=== PATIENT | male | born 1950 | race African-American/Black ===

== ENCOUNTER 2016-05-30 09:54 | Inpatient (IN) | payer BC, MEDICARE ==
[~2016-05-30] VITALS: Ht 182.9 cm; Wt 144.2 kg
[2016-05-30 10:12] VITALS: BP 138/88
[2016-05-30 11:23] LABS: BASOPHILS % (AUTO) 0.7 % (0.0-2.0); EOSINOPHILS % (AUTO) 1.2 % (0.0-3.0); LYMPHOCYTES % (AUTO) 14.6 % (20.0-45.0); MEAN CORPUSCULAR HEMOGLOBIN 28.7 PG (27.0-31.0); MEAN CORPUSCULAR HGB CONC 32.2 G/DL (32.0-36.0); MEAN CORPUSCULAR VOLUME 89 FL (80-99); MEAN PLATELET VOLUME 5.3 FL (6.5-10.1); MONOCYTES % (AUTO) 9.3 % (1.0-10.0); NEUTROPHILS % (AUTO) 74.2 % (45.0-75.0); PLATELET COUNT 217 K/UL (150-450); RED BLOOD COUNT 2.86 M/UL (4.70-6.10); RED CELL DISTRIBUTION WIDTH 14.4 % (11.6-14.8); WHITE BLOOD COUNT 9.6 K/UL (4.8-10.8)
[2016-05-30 11:43] LABS: ALANINE AMINOTRANSFERASE 17 U/L (3-41); ALBUMIN/GLOBULIN RATIO 1.5 (1.0-2.7); ANION GAP 9 (5-15); ASPARTATE AMINO TRANSFERASE 16 U/L (5-40); CARBON DIOXIDE 25 mEQ/L (20-30); CHLORIDE 101 mEQ/L (98-107); CREATININE 0.7 mg/dL (0.7-1.2); GLOMERULAR FILTRATION RATE > 60 mL/min (>60); HEMOLYSIS 2; LIPASE 30 U/L (< 60); POTASSIUM 4.5 mEQ/L (3.4-4.9); SODIUM 135 mEQ/L (135-145); TOTAL PROTEIN 6.4 g/dL (6.6-8.7)
[2016-05-30] MEDS ORDERED: NKM (12:35)
[2016-05-30 13:24] VITALS: BP 122/54
[2016-05-30 15:30] VITALS: BP 130/62
[2016-05-30] MEDS: Pantoprazole Inj IVP SCH (19:02)
[2016-05-30 19:07] LABS: RETICULOCYTE COUNT 1.8 % (0.0-2.0)
[2016-05-30 19:18] LABS: ANISOCYTOSIS 1+; BAND NEUTROPHILS % (MANUAL) 0 % (0-8); BASOPHILS % (MANUAL) 0 % (0-2); EOSINOPHILS % (MANUAL) 2 % (0-3); LYMPHOCYTES % (MANUAL) 21 % (20-45); MICROCYTES 1+; NEUTROPHILS % (MANUAL) 62 % (45-75); NUCLEATED RED BLOOD CELLS 3 /100 WBC; PLATELET ESTIMATE ADEQUATE; PLATELET MORPHOLOGY NORMAL; POLYCHROMASIA 1+; TOTAL CELLS COUNTED 100
[2016-05-30 19:19] LABS: PATH BLOOD SMEAR/OMC SENT TO PATHOLOGIST
[2016-05-30 21:37] LABS: CRP QUANT 1.7 mg/dL (< 0.5)
--- NOTE | 2016-05-30 23:50 | General Progress Note ---
Assessment/Plan Assessment/Plan Assessment - Melena - Anemia - Obesity Recommendations - clears - NPO after MN - EGD in am - PPI Subjective Allergies: Coded Allergies: No Known Allergies (Unverified , 05/30/16) Objective Last 24 Hour Vital Signs Date Time Temp Pulse Resp B/P Pulse Ox O2 Delivery O2 Flow Rate FiO2 05/30/16 16:27 98.6 81 19 126/60 99 Room Air 05/30/16 15:30 98.6 88 20 130/62 100 Room Air 05/30/16 13:24 98.8 83 22 122/54 100 Room Air 05/30/16 10:12 98.8 18 138/88 100 Room Air 05/30/16 09:58 98.8 89 18 138/88 100 Room Air Laboratory Tests 05/30/16 11:12: White Blood Count 9.6, Red Blood Count 2.86L, Hemoglobin 8.2L, Hematocrit 25.5L , Mean Corpuscular Volume 89, Mean Corpuscular Hemoglobin 28.7, Mean Corpuscular Hemoglobin Concent 32.2, Red Cell Distribution Width 14.4, Platelet Count 217, Mean Platelet Volume 5.3L, Neutrophils (%) (Auto) 74.2, Lymphocytes ( %) (Auto) 14.6L, Monocytes (%) (Auto) 9.3, Eosinophils (%) (Auto) 1.2, Basophils (%) (Auto) 0.7, Differential Total Cells Counted 100, Neutrophils % ( Manual) 62, Lymphocytes % (Manual) 21, Monocytes % (Manual) 15H, Eosinophils % ( Manual) 2, Basophils % (Manual) 0, Band Neutrophils 0, Nucleated Red Blood Cells 3, Platelet Estimate Adequate, Platelet Morphology Normal, Polychromasia 1 +, Anisocytosis 1+, Microcytosis 1+, Sodium Level 135, Potassium Level 4.5, Chloride Level 101, Carbon Dioxide Level 25, Anion Gap 9, Blood Urea Nitrogen 15 , Creatinine 0.7, Estimat Glomerular Filtration Rate > 60, Glucose Level 104, Calcium Level 12.0H, Total Bilirubin 0.3, Aspartate Amino Transf (AST/SGOT) 16, Alanine Aminotransferase (ALT/SGPT) 17, Alkaline Phosphatase 98, Total Protein 6.4L, Albumin 3.9, Globulin 2.5, Albumin/Globulin Ratio 1.5, Lipase 30 05/30/16 11:13: Erythrocyte Sedimentation Rate 48H, Reticulocyte Count 1.8 05/30/16 20:40: Iron Level 41L, Total Iron Binding Capacity 294, Percent Iron Saturation 14L, Unsaturated Iron Binding 253, Ferritin 149, C-Reactive Protein, Quantitative 1.7H, Vitamin B12 Level 379, Folate [Pending] Height (Feet): 6 Height (Inches): 0.00 Weight (Pounds): 318 SHANAE CRUZ May 30, 2016 23:50
[2016-05-31] VITALS (9 sets, daily range): BP systolic 92–123; BP diastolic 47–70
--- NOTE | 2016-05-31 04:37 | Consultation ---
DATE OF CONSULTATION: 05/30/2016 GASTROENTEROLOGY CONSULTATION CONSULTING PHYSICIAN: Rosa Siddiqui M.D. REFERRING PHYSICIAN: Francis Saucedo M.D. CHIEF COMPLAINT: I was asked to see this patient for evaluation of gastrointestinal bleeding. HISTORY OF PRESENT ILLNESS: The patient is a pleasant, obese, 66-year-old man without any significant past medical history who was in his usual state of health until past few days when he noticed black stools. He came to the emergency room where he was found to have a low hematocrit and thus he was admitted for evaluation. The patient denies any abdominal pain, nausea, or vomiting. He did take a small dose of aspirin last week or two. He had no history of anemia and has not had prior endoscopy or colonoscopy in the past. He is generally healthy and has no physicians. PAST MEDICAL HISTORY: Not available. MEDICATIONS: None. FAMILY HISTORY: Noncontributory. SOCIAL HISTORY: The patient is . He has no children. He does not smoke or drink alcohol. REVIEW OF SYSTEMS: Negative. PHYSICAL EXAMINATION: GENERAL: The patient is a pleasant, obese, man, seen in his room. HEENT: Normocephalic and atraumatic. Sclerae anicteric. Oropharynx is clear. NECK: Supple. CHEST: Clear to auscultation. CARDIOVASCULAR: Revealed regular rate. ABDOMEN: Soft and nontender. EXTREMITIES: No edema. LABORATORY DATA: Noted. ASSESSMENT: This patient has a first-time episode of melena with drop in hematocrit. He should have an endoscopy tomorrow to evaluate the risks, cause for recurrent bleeding, and the nature of the bleeding lesion. If he is positive, probably he will likely need to be treated. RECOMMENDATIONS: 1. Keep the patient NPO after midnight. 2. Clear liquid diet, continue. 3. Intravenous fluids. 4. Proton pump inhibitor. 5. Endoscopy tomorrow. Thank you for asking me to participate in the care of this patient. Rosa Siddiqui M.D. DR: MAKENZIE JOB#: [id number] CC:
--- NOTE | 2016-05-31 06:47 | Emergency Room Report ---
History of Present Illness General Chief Complaint: Gastrointestinal Bleed Source: Patient Present Illness HPI Patient presents with complaints of dark stool General weakness Patient's concern about possible bleeding Denies any headache or visual changes as any chest pain or shortness of breath patient has not had a colonoscopy previously Denies any abdominal pain denies any fevers or chills Patient states that his stool has been changing color for the last several days denies any change in medication Patient had some lightheadedness weakness Allergies: Coded Allergies: No Known Allergies (Unverified , 05/30/16) Patient History Past Medical History: see triage record Pertinent Family History: none Reviewed Nursing Documentation: PMH: Agreed, PSxH: Agreed Nursing Documentation-PMH Hx Cardiac Problems: No Hx Cancer: No Hx Neurological Problems: No Review of Systems All Other Systems: negative except mentioned in HPI Physical Exam Vital Signs Date Time Temp Pulse Resp B/P Pulse Ox O2 Delivery O2 Flow Rate FiO2 05/30/16 09:58 98.8 89 18 138/88 100 Room Air Sp02 EP Interpretation: reviewed, normal General Appearance: well appearing, no apparent distress Head: normocephalic, atraumatic Eyes: bilateral eye EOMI, bilateral eye PERRL ENT: hearing grossly normal, normal pharynx, TMs + canals normal, uvula midline Neck: full range of motion, supple, no meningismus, no bony tend Respiratory: lungs clear, normal breath sounds, no rhonchi, no respiratory distress, no retraction, no accessory muscle use Cardiovascular #1: normal peripheral pulses, regular rate, rhythm, no edema, no gallop, no JVD, no murmur Gastrointestinal: normal bowel sounds, non tender, soft, no mass, no organomegaly, non-distended, no guarding, no hernia, no pulsatile mass, no rebound Genitourinary: no CVA tenderness Musculoskeletal: normal inspection Neurologic: oriented x3, responsive, train engineer III-XII nml as tested, motor strength/ tone normal, sensory intact Psychiatric: mood/affect normal Skin: normal color, no rash, warm/dry, palpation normal Lymphatic: normal inspection, no adenopathy Medical Decision Making Diagnostic Impression: Primary Impression: GI bleed Additional Impression: Symptomatic anemia ER Course Given the patient's presentation and complaint Patient is considered complex requiring blood work Patient was not able to provide us a stool sample At this time attempts of obtaining Hemoccult was also unsuccessful However given the patient's symptomatic findings hemoglobin of 8 patient was admitted for further inpatient care Labs Test 05/30/16 11:12 05/30/16 11:13 05/30/16 20:40 White Blood Count 9.6 K/UL (4.8-10.8) Red Blood Count 2.86 M/UL (4.70-6.10) Hemoglobin 8.2 G/DL (14.2-18.0) Hematocrit 25.5 % (42.0-52.0) Mean Corpuscular Volume 89 FL (80-99) Mean Corpuscular Hemoglobin 28.7 PG (27.0-31.0) Mean Corpuscular Hemoglobin Concent 32.2 G/DL (32.0-36.0) Red Cell Distribution Width 14.4 % (11.6-14.8) Platelet Count 217 K/UL (150-450) Mean Platelet Volume 5.3 FL (6.5-10.1) Neutrophils (%) (Auto) 74.2 % (45.0-75.0) Lymphocytes (%) (Auto) 14.6 % (20.0-45.0) Monocytes (%) (Auto) 9.3 % (1.0-10.0) Eosinophils (%) (Auto) 1.2 % (0.0-3.0) Basophils (%) (Auto) 0.7 % (0.0-2.0) Differential Total Cells Counted 100 Neutrophils % (Manual) 62 % (45-75) Lymphocytes % (Manual) 21 % (20-45) Monocytes % (Manual) 15 % (1-10) Eosinophils % (Manual) 2 % (0-3) Basophils % (Manual) 0 % (0-2) Band Neutrophils 0 % (0-8) Nucleated Red Blood Cells 3 /100 WBC Platelet Estimate Adequate Platelet Morphology Normal Polychromasia 1+ Anisocytosis 1+ Microcytosis 1+ Sodium Level 135 mEQ/L (135-145) Potassium Level 4.5 mEQ/L (3.4-4.9) Chloride Level 101 mEQ/L (98-107) Carbon Dioxide Level 25 mEQ/L (20-30) Anion Gap 9 (5-15) Blood Urea Nitrogen 15 mg/dL (7-23) Creatinine 0.7 mg/dL (0.7-1.2) Estimat Glomerular Filtration Rate > 60 mL/min (>60) Glucose Level 104 mg/dL (74-106) Calcium Level 12.0 mg/dL (8.6-10.2) Total Bilirubin 0.3 mg/dL (0.0-1.2) Aspartate Amino Transf (AST/SGOT) 16 U/L (5-40) Alanine Aminotransferase (ALT/SGPT) 17 U/L (3-41) Alkaline Phosphatase 98 U/L (40-129) Total Protein 6.4 g/dL (6.6-8.7) Albumin 3.9 g/dL (3.5-5.2) Globulin 2.5 g/dL Albumin/Globulin Ratio 1.5 (1.0-2.7) Lipase 30 U/L (< 60) Erythrocyte Sedimentation Rate 48 MM/HR (0-20) Reticulocyte Count 1.8 % (0.0-2.0) Iron Level 41 ug/dL (59-158) Total Iron Binding Capacity 294 ug/dL (250-400) Percent Iron Saturation 14 % (15-50) Unsaturated Iron Binding 253 ug/dL (112-346) Ferritin 149 ng/mL (10-230) C-Reactive Protein, Quantitative 1.7 mg/dL (< 0.5) Vitamin B12 Level 379 pg/mL (211-946) Last Vital Signs Date Time Temp Pulse Resp B/P Pulse Ox O2 Delivery O2 Flow Rate FiO2 05/31/16 00:00 97.9 71 18 105/58 91 Room Air Status: improved Disposition: ADMITTED INPATIENT Condition: Serious Referrals: NOT CHOSEN IPA/,REFERRING (PCP) CARLENE KOO D.O. May 31, 2016 06:47
[2016-05-31] MEDS: Pantoprazole Inj IVP SCH ×2 (08:46→17:32)
--- NOTE | 2016-05-31 09:39 | Pre-Procedure Note/Attestation ---
Pre-Procedure Note/Attestation Complete Prior to Procedure Planned Procedure: not applicable Procedure Narrative: egd Indications for Procedure Pre-Operative Diagnosis: anemia Attestation I attest that I discussed the nature of the procedure; its benefits; risks and complications; and alternatives (and the risks and benefits of such alternatives ), prior to the procedure, with the patient (or the patient's legal digital media representative). I attest that, if there was a reasonable possibility of needing a blood transfusion, the patient (or the patient's legal digital media representative) was given the [facility] standardized written summary, pursuant to the David Casey Blood Safety Act ([place] Health and Safety Code # 1645, as amended). I attest that I re-evaluated the patient just prior to the surgery and that there has been no change in the patient's H&P, except as documented below: YAQUELIN JOHANSEN May 31, 2016 09:39
--- NOTE | 2016-05-31 09:43 | Short Stay Surgery H&P ---
History of Present Illness History of Present Illness Chief Complaint gib HPI Tony Madera is a 66 year old male who was admitted on May 30, 2016 at 12:54 for Gastrointestinal Bleeding Patient History Allergies: Coded Allergies: No Known Allergies (Unverified , 05/30/16) PAST MEDICAL HISTORY: (1) Kidney stone (2) Symptomatic anemia Past Surgeries: Social History: Medication History Scheduled No Known Medications* (NKM - No Known Medications*), 0 ., (Reported) Review of Systems Cardiovascular: Reports: no symptoms Respiratory: Reports: no symptoms Skeletal: Reports: no symptoms Gastrointestinal: Reports: no symptoms Genitourinary: Reports: no symptoms Neurologic: Reports: no symptoms Endocrine: Reports: no symptoms Hematologic: Reports: no symptoms Physical Exam Vital Signs Last Vital Signs Date Time Temp Pulse Resp B/P Pulse Ox O2 Delivery O2 Flow Rate FiO2 05/31/16 08:29 98.0 76 20 105/64 98 Room Air Labs Laboratory Tests Test 05/30/16 11:12 05/30/16 11:13 05/30/16 20:40 White Blood Count 9.6 K/UL (4.8-10.8) Red Blood Count 2.86 M/UL (4.70-6.10) L Hemoglobin 8.2 G/DL (14.2-18.0) L Hematocrit 25.5 % (42.0-52.0) L Mean Corpuscular Volume 89 FL (80-99) Mean Corpuscular Hemoglobin 28.7 PG (27.0-31.0) Mean Corpuscular Hemoglobin Concent 32.2 G/DL (32.0-36.0) Red Cell Distribution Width 14.4 % (11.6-14.8) Platelet Count 217 K/UL (150-450) Mean Platelet Volume 5.3 FL (6.5-10.1) L Neutrophils (%) (Auto) 74.2 % (45.0-75.0) Lymphocytes (%) (Auto) 14.6 % (20.0-45.0) L Monocytes (%) (Auto) 9.3 % (1.0-10.0) Eosinophils (%) (Auto) 1.2 % (0.0-3.0) Basophils (%) (Auto) 0.7 % (0.0-2.0) Differential Total Cells Counted 100 Neutrophils % (Manual) 62 % (45-75) Lymphocytes % (Manual) 21 % (20-45) Monocytes % (Manual) 15 % (1-10) H Eosinophils % (Manual) 2 % (0-3) Basophils % (Manual) 0 % (0-2) Band Neutrophils 0 % (0-8) Nucleated Red Blood Cells 3 /100 WBC Platelet Estimate Adequate Platelet Morphology Normal Polychromasia 1+ Anisocytosis 1+ Microcytosis 1+ Sodium Level 135 mEQ/L (135-145) Potassium Level 4.5 mEQ/L (3.4-4.9) Chloride Level 101 mEQ/L (98-107) Carbon Dioxide Level 25 mEQ/L (20-30) Anion Gap 9 (5-15) Blood Urea Nitrogen 15 mg/dL (7-23) Creatinine 0.7 mg/dL (0.7-1.2) Estimat Glomerular Filtration Rate > 60 mL/min (>60) Glucose Level 104 mg/dL (74-106) Calcium Level 12.0 mg/dL (8.6-10.2) H Total Bilirubin 0.3 mg/dL (0.0-1.2) Aspartate Amino Transf (AST/SGOT) 16 U/L (5-40) Alanine Aminotransferase (ALT/SGPT) 17 U/L (3-41) Alkaline Phosphatase 98 U/L (40-129) Total Protein 6.4 g/dL (6.6-8.7) L Albumin 3.9 g/dL (3.5-5.2) Globulin 2.5 g/dL Albumin/Globulin Ratio 1.5 (1.0-2.7) Lipase 30 U/L (< 60) Erythrocyte Sedimentation Rate 48 MM/HR (0-20) H Reticulocyte Count 1.8 % (0.0-2.0) Iron Level 41 ug/dL (59-158) L Total Iron Binding Capacity 294 ug/dL (250-400) Percent Iron Saturation 14 % (15-50) L Unsaturated Iron Binding 253 ug/dL (112-346) Ferritin 149 ng/mL (10-230) C-Reactive Protein, Quantitative 1.7 mg/dL (< 0.5) H Vitamin B12 Level 379 pg/mL (211-946) Folate Pending Skin: normal HENT: normal Heart: normal Lungs: normal Abdomen: normal Extremities: normal Plan Plan of Care egd Final Diagnosis: Attestation Are the patient's medical conditions optimized for surgery? Attestation Response: yes YAQUELIN JOHANSEN May 31, 2016 09:43
[2016-05-31] MEDS ORDERED: Lidocaine 1% MPF 10mg/ml 5ml ONE (10:00)
[2016-05-31] MEDS ORDERED: LR 1000ml ONE (10:00)
[2016-05-31] MEDS ORDERED: Propofol 10mg/ml 20ml IV ONE (10:00)
--- NOTE | 2016-05-31 10:01 | Anethesia Preoperative Eval ---
Anesthesia Pre-op PMH/ROS General Date of Evaluation: May 31, 2016 Time of Evaluation: 09:59 Anesthesiologist: jayson ASA Score: ASA 3 Mallampati Score Class I : Soft palate, uvula, fauces, pillars visible Class II: Soft palate, uvula, fauces visible Class III: Soft palate, base of uvula visible Class IV: Only hard plate visible Mallampati Classification: Class III Surgeon: mansi Diagnosis: gastritis Surgical Procedure: egd Anesthesia History: none Family History: no anesthesia problems Allergies: Coded Allergies: No Known Allergies (Unverified , 05/30/16) Medications: see eMAR Past Medical History Cardiovascular: Denies: CAD, HTN, NH, arrhythmia, other, valve dz Pulmonary: Denies: COPD, OPAL, asthma, other Gastrointestinal/Genitourinary: Reports: GERD Neurologic/Psychiatric: Denies: CVA, TIA, dementia, depression/anxiety, other Endocrine: Denies: DM, hypothyroidism, other, steroids HEENT: Denies: BLACKFEET (L), BLACKFEET (R), cataract (L), cataract (R), glaucoma, other Hematology/Immune: Reports: anemia Musculoskeletal/Integumentary: Denies: DDD, DJD, OA, RA, edema, other Other: obesity PSxH Narrative: denies Anesthesia Pre-op Phys. Exam Physician Exam Last Vital Signs Date Time Temp Pulse Resp B/P Pulse Ox O2 Delivery O2 Flow Rate FiO2 05/31/16 08:29 98.0 76 20 105/64 98 Room Air Constitutional: NAD Neurologic: CN 2-12 intact Cardiovascular: RRR Respiratory: CTA Gastrointestinal: S/NT/ND Airway Exam Mallampati Classification 3 Mallampati Score: Class III MO: full Neck: thick TMD: 1fb ROM: full Dentures: no lower, no upper Anesthesia Pre-op A/P Labs Hematology Test 05/30/16 11:12 05/30/16 11:13 White Blood Count 9.6 K/UL (4.8-10.8) Red Blood Count 2.86 M/UL (4.70-6.10) L Hemoglobin 8.2 G/DL (14.2-18.0) L Hematocrit 25.5 % (42.0-52.0) L Mean Corpuscular Volume 89 FL (80-99) Mean Corpuscular Hemoglobin 28.7 PG (27.0-31.0) Mean Corpuscular Hemoglobin Concent 32.2 G/DL (32.0-36.0) Red Cell Distribution Width 14.4 % (11.6-14.8) Platelet Count 217 K/UL (150-450) Mean Platelet Volume 5.3 FL (6.5-10.1) L Neutrophils (%) (Auto) 74.2 % (45.0-75.0) Lymphocytes (%) (Auto) 14.6 % (20.0-45.0) L Monocytes (%) (Auto) 9.3 % (1.0-10.0) Eosinophils (%) (Auto) 1.2 % (0.0-3.0) Basophils (%) (Auto) 0.7 % (0.0-2.0) Differential Total Cells Counted 100 Neutrophils % (Manual) 62 % (45-75) Lymphocytes % (Manual) 21 % (20-45) Monocytes % (Manual) 15 % (1-10) H Eosinophils % (Manual) 2 % (0-3) Basophils % (Manual) 0 % (0-2) Band Neutrophils 0 % (0-8) Nucleated Red Blood Cells 3 /100 WBC Platelet Estimate Adequate Platelet Morphology Normal Polychromasia 1+ Anisocytosis 1+ Microcytosis 1+ Erythrocyte Sedimentation Rate 48 MM/HR (0-20) H Reticulocyte Count 1.8 % (0.0-2.0) Chemistry Test 05/30/16 11:12 05/30/16 20:40 Sodium Level 135 mEQ/L (135-145) Potassium Level 4.5 mEQ/L (3.4-4.9) Chloride Level 101 mEQ/L (98-107) Carbon Dioxide Level 25 mEQ/L (20-30) Anion Gap 9 (5-15) Blood Urea Nitrogen 15 mg/dL (7-23) Creatinine 0.7 mg/dL (0.7-1.2) Estimat Glomerular Filtration Rate > 60 mL/min (>60) Glucose Level 104 mg/dL (74-106) Calcium Level 12.0 mg/dL (8.6-10.2) H Total Bilirubin 0.3 mg/dL (0.0-1.2) Aspartate Amino Transf (AST/SGOT) 16 U/L (5-40) Alanine Aminotransferase (ALT/SGPT) 17 U/L (3-41) Alkaline Phosphatase 98 U/L (40-129) Total Protein 6.4 g/dL (6.6-8.7) L Albumin 3.9 g/dL (3.5-5.2) Globulin 2.5 g/dL Albumin/Globulin Ratio 1.5 (1.0-2.7) Lipase 30 U/L (< 60) Iron Level 41 ug/dL (59-158) L Total Iron Binding Capacity 294 ug/dL (250-400) Percent Iron Saturation 14 % (15-50) L Unsaturated Iron Binding 253 ug/dL (112-346) Ferritin 149 ng/mL (10-230) C-Reactive Protein, Quantitative 1.7 mg/dL (< 0.5) H Vitamin B12 Level 379 pg/mL (211-946) Folate Pending Studies Pre-op Studies: EKG - sr Risk Assessment & Plan Plan: mac Status Change Before Surgery: No Pre-Antibiotics Drug: none IRIS HAHN CRNA May 31, 2016 10:01
--- NOTE | 2016-05-31 10:02 | Endoscopy Procedure Note ---
Endoscopy Procedure Note Indication for Procedure: anemia Procedures Performed: EGD Operative Findings/Diagnosis: gastritis Specimen: yes Pt Tolerated Procedure Well: Yes Estimated Blood Loss: none Anesthesiologist: marlo Anesthesia: MAC Implant(s) used?: No 50 yrs or older w/o bx or poly: Not Applicable 10yrs. F/U not recommended: Not Applicable YAQUELIN JOHANSEN May 31, 2016 10:02
--- NOTE | 2016-05-31 10:20 | Immediate Post-Op Evaluation ---
Immediate Post-Op Evalulation Immediate Post-Op Evalulation Procedure: egd Date of Evaluation: May 31, 2016 Time of Evaluation: 10:19 IV Fluids: 300 Blood Pressure Systolic: 117 Blood Pressure Diastolic: 65 Pulse Rate: 70 Respiratory Rate: 14 O2 Sat by Pulse Oximetry: 100 Nausea: No Vomiting: No Complications none Patient Status: awake, reacts, patent Hydration Status: adequate Drug: none IRIS HAHN CRNA May 31, 2016 10:20
--- NOTE | 2016-05-31 10:28 | 48 Hour Post Anesthesia Eval ---
Post Anesthesia Evaluation Procedure: egd Date of Evaluation: May 31, 2016 Time of Evaluation: 10:25 Blood Pressure Systolic: 105 0: 64 Pulse Rate: 75 O2 Sat by Pulse Oximetry: 99 Airway: patent Nausea: No Vomiting: No Hydration Status: adequate Cardiopulmonary Status: normal Mental Status/LOC: patient returned to baseline Post-Anesthesia Complications: none Follow-up care needed: N/A IRIS HAHN CRNA May 31, 2016 10:28
[2016-05-31] MEDS ORDERED: Nulytely 4L ORAL ONE (12:00)
--- NOTE | 2016-05-31 18:38 | Procedure Note ---
SURGEON: Pb Verma M.D. PROCEDURE: Upper endoscopy with biopsy. ANESTHESIA: DIESEL ENGINE PIPE FITTER, Xin Tarrillion. INSTRUMENT: Olympus adult flexible endoscope. INDICATION: Gastrointestinal bleeding. REASON FOR PROCEDURE: The procedure, risks, benefits, and possible consequences, including hemorrhage, aspiration, perforation and infection, and alternative treatments, were explained to the patient/legal guardian by Dr. Pb Verma and the patient/legal guardian understood and accepted these risks. PROCEDURE: After informed consent, the patient was adequately sedated, Olympus endoscope was advanced from the mouth to the second portion of duodenum and retroflexion performed in the stomach. There was no evidence of any active upper gastrointestinal bleeding. There was mild gastritis. Random biopsy from antrum was obtained to rule out H. pylori infection. There is no obvious gastric or duodenal ulceration. No blood seen in the duodenum nor in the stomach at this time. The patient tolerated the procedure without any complication. FINDINGS: Gastritis, status post biopsy. Otherwise normal colonoscopic examination. RECOMMENDATIONS: 1. Follow up biopsies and treat accordingly. 2. The patient will need a colonoscopy tomorrow. Pb Verma M.D. DR: SCOTT JOB#: [id number] CC:
--- NOTE | 2016-05-31 18:47 | History and Physical Report ---
DATE OF ADMISSION: 05/30/2016 REASON FOR ADMISSION: GI bleeding. The patient had brown stools. The patient also has anemia. He was admitted for those reasons. The patient states he had blood in stool for three days and also vomited. The patient is obese. Denies heartburn. Denies extremity pain. Denies fever or chills. Denies cough. PAST MEDICAL HISTORY: None. PAST SURGICAL HISTORY: None. MEDICATIONS: None. ALLERGIES: No known allergies. SOCIAL HISTORY: The patient denies smoking, alcohol, or illicit drugs. FAMILY HISTORY: Noncontributory. REVIEW OF SYSTEMS: HEENT: Denies headache. Respiratory: Denies shortness of breath. Denies cough. Cardiovascular: Denies chest pain or orthopnea. Gastrointestinal: vomiting. Denies heartburn. Extremities: Denies pain in extremities. Central Nervous System: Denies change in vision or speech pattern. PHYSICAL EXAMINATION: VITAL SIGNS: Temperature is 98 degrees, pulse is 76, and blood pressure 105/64. HEENT: PERRLA. NECK: Supple. No lymphadenopathy. CHEST: Clear to auscultation. GASTROINTESTINAL: Abdomen is soft and nontender. No organomegaly. EXTREMITIES: There is 2+ edema. NEUROLOGIC: The patient is obese. Reflexes are equal on both sides. Moving all four extremities. LABORATORY AND DIAGNOSTIC DATA: White blood cell of 9.6, hemoglobin 8.2, and platelet of 217,000. Sodium 135, potassium 4.5, BUN of 16, creatinine 0.7, and glucose of 104. ASSESSMENT AND PLAN: 1. Gastrointestinal bleed. 2. Anemia. I have asked Dr. Ramos, Dr. Bishop, and Dr. Siddiqui to see the patient to find out why the patient is admitted and for the etiology for GI bleed as well as for hypercalcemia of 12. Dr. Ramos will be helping me with that for the hypercalcemia. Francis Saucedo M.D. DR: MICHAEL JOB#: [id number] CC:
[2016-05-31] MEDS ORDERED: Iron Sucrose 100 MG in NS 110 ML IVPB SCH (21:00)
--- NOTE | 2016-05-31 21:16 | General Progress Note ---
Assessment/Plan Assessment/Plan Assessment - Melena - Anemia - Obesity - EGD negative Recommendations - clears - NPO after MN - Colonoscopy in am - PPI Subjective Allergies: Coded Allergies: No Known Allergies (Unverified , 05/30/16) Subjective Feels OK s/p EGD --> negative d/w pt re colonoscopy agreed to proceed Objective Last 24 Hour Vital Signs Date Time Temp Pulse Resp B/P Pulse Ox O2 Delivery O2 Flow Rate FiO2 05/31/16 20:00 97.5 64 18 107/70 100 Room Air 05/31/16 16:22 98.4 73 20 123/62 97 Room Air 05/31/16 10:35 98.6 73 24 117/57 100 Room Air 05/31/16 10:28 75 99 05/31/16 10:24 71 13 120/64 98 Room Air 05/31/16 10:20 70 14 100 05/31/16 10:19 81 15 92/52 98 Room Air 05/31/16 10:14 98.5 74 24 96/47 98 Room Air 05/31/16 08:29 98.0 76 20 105/64 98 Room Air 05/31/16 00:00 97.9 71 18 105/58 91 Room Air Intake and Output 05/30/16 05/31/16 19:00 07:00 # Voids 1 Height (Feet): 6 Height (Inches): 0.00 Weight (Pounds): 318 Objective Obese AA man NCAT supple CTA RRR soft NT ND no edema non focal SHANAE CRUZ May 31, 2016 21:16
--- NOTE | 2016-05-31 21:37 | General Progress Note ---
Assessment/Plan Assessment/Plan Assessment: # Anemia 2/2 iron deficiency - continue iv iron # Anemia 2/2 GI bleed with melena - is s/p egd, pending colo # Hypercalcemia # Melena # Obesity Recommendations: - Anemia w/u has been ordered - Peripheral smear has been reviewed - Ordered PTH level - Continue him on iv iron - GI ppx with protonix - [place] for tomorrow - F/U on GI recs - DW Staff Sincerely, Abner Bishop MD Subjective Constitutional: Reports: no symptoms HEENT: Reports: no symptoms Cardiovascular: Reports: no symptoms Respiratory: Reports: no symptoms Gastrointestinal/Abdominal: Reports: poor appetite Genitourinary: Reports: no symptoms Neurologic/Psychiatric: Reports: no symptoms Endocrine: Reports: no symptoms Hematologic/Lymphatic: Reports: anemia Allergies: Coded Allergies: No Known Allergies (Unverified , 05/30/16) Subjective s/p egd this am Objective Last 24 Hour Vital Signs Date Time Temp Pulse Resp B/P Pulse Ox O2 Delivery O2 Flow Rate FiO2 05/31/16 20:00 97.5 64 18 107/70 100 Room Air 05/31/16 16:22 98.4 73 20 123/62 97 Room Air 05/31/16 10:35 98.6 73 24 117/57 100 Room Air 05/31/16 10:28 75 99 05/31/16 10:24 71 13 120/64 98 Room Air 05/31/16 10:20 70 14 100 05/31/16 10:19 81 15 92/52 98 Room Air 05/31/16 10:14 98.5 74 24 96/47 98 Room Air 05/31/16 08:29 98.0 76 20 105/64 98 Room Air 05/31/16 00:00 97.9 71 18 105/58 91 Room Air Intake and Output 05/30/16 05/31/16 19:00 07:00 # Voids 1 Height (Feet): 6 Height (Inches): 0.00 Weight (Pounds): 318 General Appearance: no apparent distress EENT: TMs normal Neck: normal alignment Cardiovascular: regular rhythm Respiratory/Chest: lungs clear Abdomen: non tender Extremities: non-tender Edema: 1+ Leg (L), 1+ Leg (R) Edema: mild edema Neurologic: alert Skin: warm/dry Abner Bishop May 31, 2016 21:37
[2016-06-01] VITALS (7 sets, daily range): BP systolic 96–114; BP diastolic 50–71
[2016-06-01 06:58] LABS: BASOPHILS % (AUTO) 0.6 % (0.0-2.0); EOSINOPHILS % (AUTO) 1.9 % (0.0-3.0); LYMPHOCYTES % (AUTO) 26.5 % (20.0-45.0); MEAN CORPUSCULAR HGB CONC 32.4 G/DL (32.0-36.0); MEAN CORPUSCULAR VOLUME 90 FL (80-99); MONOCYTES % (AUTO) 11.2 % (1.0-10.0); NEUTROPHILS % (AUTO) 59.9 % (45.0-75.0); PLATELET COUNT 255 K/UL (150-450); RED BLOOD COUNT 2.78 M/UL (4.70-6.10); RED CELL DISTRIBUTION WIDTH 15.6 % (11.6-14.8); WHITE BLOOD COUNT 6.6 K/UL (4.8-10.8)
[2016-06-01 07:40] LABS: ANION GAP 12 (5-15); CALCIUM 12.1 mg/dL (8.6-10.2); CARBON DIOXIDE 24 mEQ/L (20-30); CHLORIDE 103 mEQ/L (98-107); CREATININE 0.9 mg/dL (0.7-1.2); GLOMERULAR FILTRATION RATE > 60 mL/min (>60); HEMOLYSIS 3; POTASSIUM 3.7 mEQ/L (3.4-4.9); SODIUM 139 mEQ/L (135-145)
[2016-06-01] MEDS ORDERED: NS 550ML IV ONE (07:45)
--- NOTE | 2016-06-01 07:59 | General Progress Note ---
Assessment/Plan Assessment/Plan Assessment - Melena - elevated inflammatory markers - ? IBD - Anemia - Obesity - EGD negative Recommendations - NPO - colonoscopy today - outpt f/u after above Subjective Allergies: Coded Allergies: No Known Allergies (Unverified , 05/30/16) Subjective Feels OK s/p EGD --> negative d/w pt re colonoscopy agreed to proceed today advised to f/u with me as outpt Objective Last 24 Hour Vital Signs Date Time Temp Pulse Resp B/P Pulse Ox O2 Delivery O2 Flow Rate FiO2 06/01/16 04:00 97.2 75 18 111/70 97 Room Air 05/31/16 23:10 97.6 66 18 106/55 98 Room Air 05/31/16 20:00 97.5 64 18 107/70 100 Room Air 05/31/16 16:22 98.4 73 20 123/62 97 Room Air 05/31/16 10:35 98.6 73 24 117/57 100 Room Air 05/31/16 10:28 75 99 05/31/16 10:24 71 13 120/64 98 Room Air 05/31/16 10:20 70 14 100 05/31/16 10:19 81 15 92/52 98 Room Air 05/31/16 10:14 98.5 74 24 96/47 98 Room Air 05/31/16 08:29 98.0 76 20 105/64 98 Room Air Intake and Output 05/31/16 06/01/16 19:00 07:00 Intake Total 1400 ml 115 ml Balance 1400 ml 115 ml Intake Oral 1300 ml IV Total 115 ml Hemodialysis 100 ml # Voids 5 4 # Bowel Movements 6 Laboratory Tests 06/01/16 06:00: White Blood Count 6.6, Red Blood Count 2.78L, Hemoglobin 8.1L, Hematocrit 24.9L , Mean Corpuscular Volume 90, Mean Corpuscular Hemoglobin 29.0, Mean Corpuscular Hemoglobin Concent 32.4, Red Cell Distribution Width 15.6H, Platelet Count 255, Mean Platelet Volume 6.0L, Neutrophils (%) (Auto) 59.9, Lymphocytes (%) (Auto) 26.5, Monocytes (%) (Auto) 11.2H, Eosinophils (%) (Auto) 1.9, Basophils (%) (Auto) 0.6, Sodium Level 139, Potassium Level 3.7, Chloride Level 103, Carbon Dioxide Level 24, Anion Gap 12, Blood Urea Nitrogen 10, Creatinine 0.9, Estimat Glomerular Filtration Rate > 60, Glucose Level 98, Calcium Level 12.1H, Calcium (Send out) [Pending], Carcinoembryonic Antigen [ Pending], Vitamin B12 Level [Pending], Folate [Pending], Parathyroid Hormone ( Intact) [Pending] Height (Feet): 6 Height (Inches): 0.00 Weight (Pounds): 318 Objective Obese AA man NCAT supple CTA RRR soft NT ND no edema non focal SHANAE CRUZ Jun 01, 2016 07:59
--- NOTE | 2016-06-01 07:59 | Pre-Procedure Note/Attestation ---
Pre-Procedure Note/Attestation Complete Prior to Procedure Planned Procedure: not applicable Procedure Narrative: colon Indications for Procedure Pre-Operative Diagnosis: anemia Attestation I attest that I discussed the nature of the procedure; its benefits; risks and complications; and alternatives (and the risks and benefits of such alternatives ), prior to the procedure, with the patient (or the patient's legal sales development representative). I attest that, if there was a reasonable possibility of needing a blood transfusion, the patient (or the patient's legal sales development representative) was given the [facility] standardized written summary, pursuant to the David Nury Blood Safety Act ([place] Health and Safety Code # 1645, as amended). I attest that I re-evaluated the patient just prior to the surgery and that there has been no change in the patient's H&P, except as documented below: SHANAE CRUZ Jun 01, 2016 07:59
[2016-06-01] MEDS ORDERED: Propofol 10mg/ml 20ml IV ONE (08:00)
[2016-06-01] MEDS ORDERED: NS 110ml ONE (08:00)
[2016-06-01] MEDS ORDERED: Lidocaine 1% MPF 10mg/ml 5ml ONE (08:00)
--- NOTE | 2016-06-01 08:19 | Immediate Post-Op Evaluation ---
Immediate Post-Op Evalulation Immediate Post-Op Evalulation Procedure: Colonoscopy Date of Evaluation: Jun 01, 2016 Time of Evaluation: 08:19 IV Fluids: 200ml Urinary Output: due to void Blood Pressure Systolic: 129 Blood Pressure Diastolic: 76 Pulse Rate: 75 Respiratory Rate: 16 O2 Sat by Pulse Oximetry: 100 Temperature (Fahrenheit): 98 Pain Score (1-10): 0 Nausea: No Vomiting: No Complications none Patient Status: awake, reacts Hydration Status: adequate Drug: n/a COLIN DAMIAN D.O. Jun 01, 2016 08:19
--- NOTE | 2016-06-01 08:37 | 48 Hour Post Anesthesia Eval ---
Post Anesthesia Evaluation Procedure: Colonoscopy Date of Evaluation: Jun 01, 2016 Time of Evaluation: 08:36 Blood Pressure Systolic: 128 0: 76 Pulse Rate: 75 Respiratory Rate: 18 Temperature (Fahrenheit): 98 O2 Sat by Pulse Oximetry: 100 Airway: patent Nausea: No Vomiting: No Pain Intensity: 0 Hydration Status: adequate Cardiopulmonary Status: stable Mental Status/LOC: patient returned to baseline Follow-up Care/Observations: as per GI Post-Anesthesia Complications: none COLIN DAMIAN D.O. Jun 01, 2016 08:37
[2016-06-01] MEDS: Pantoprazole Inj IVP SCH ×2 (09:00→18:00)
--- NOTE | 2016-06-01 10:43 | General Progress Note ---
Assessment/Plan Problem List: (1) GI bleed ICD Codes: K92.2 - Gastrointestinal hemorrhage, unspecified SNOMED: 92702388 (2) Symptomatic anemia ICD Codes: D64.9 - Anemia, unspecified SNOMED: 754784368 (3) Kidney stone ICD Codes: N20.0 - Calculus of kidney SNOMED: 43058673 Status: progressing Assessment/Plan gi bleed lower check h/h afebrile endoscopy per gi Subjective ROS Limited/Unobtainable: Yes Constitutional: Reports: no symptoms Allergies: Coded Allergies: No Known Allergies (Unverified , 05/30/16) Objective Last 24 Hour Vital Signs Date Time Temp Pulse Resp B/P Pulse Ox O2 Delivery O2 Flow Rate FiO2 06/01/16 08:45 97.8 70 11 105/60 100 Room Air 06/01/16 08:37 75 18 100 06/01/16 08:30 71 18 101/53 100 Room Air 06/01/16 08:25 72 15 100/50 100 Room Air 06/01/16 08:20 97.9 76 20 98/52 100 Room Air 06/01/16 08:19 75 16 100 06/01/16 04:00 97.2 75 18 111/70 97 Room Air 05/31/16 23:10 97.6 66 18 106/55 98 Room Air 05/31/16 20:00 97.5 64 18 107/70 100 Room Air 05/31/16 16:22 98.4 73 20 123/62 97 Room Air Intake and Output 05/31/16 06/01/16 18:59 06:59 Intake Total 1400 ml 115 ml Balance 1400 ml 115 ml Intake Oral 1300 ml IV Total 115 ml Hemodialysis 100 ml # Voids 5 4 # Bowel Movements 6 Laboratory Tests 06/01/16 06:00: White Blood Count 6.6, Red Blood Count 2.78L, Hemoglobin 8.1L, Hematocrit 24.9L , Mean Corpuscular Volume 90, Mean Corpuscular Hemoglobin 29.0, Mean Corpuscular Hemoglobin Concent 32.4, Red Cell Distribution Width 15.6H, Platelet Count 255, Mean Platelet Volume 6.0L, Neutrophils (%) (Auto) 59.9, Lymphocytes (%) (Auto) 26.5, Monocytes (%) (Auto) 11.2H, Eosinophils (%) (Auto) 1.9, Basophils (%) (Auto) 0.6, Sodium Level 139, Potassium Level 3.7, Chloride Level 103, Carbon Dioxide Level 24, Anion Gap 12, Blood Urea Nitrogen 10, Creatinine 0.9, Estimat Glomerular Filtration Rate > 60, Glucose Level 98, Calcium Level 12.1H, Calcium (Send out) [Pending], Carcinoembryonic Antigen 1.3 , Vitamin B12 Level 573, Folate [Pending], Parathyroid Hormone (Intact) [Pending ] Height (Feet): 6 Height (Inches): 0.00 Weight (Pounds): 318 EENT: PERRL/EOMI Neck: supple Cardiovascular: normal rate Respiratory/Chest: lungs clear Abdomen: soft Francis Saucedo MD Jun 01, 2016 10:43
[2016-06-01 10:56] LABS: OTHERS PATHOLOGIST COMMENT
[2016-06-01] MEDS ORDERED: D5 1/2NS 1,000 ML IV SCH (11:00)
[2016-06-01] MEDS ORDERED: Tubing IV Secondary IV ONE (19:44)
[2016-06-01] MEDS ORDERED: NS 275ml ONE (19:44)
[2016-06-01] MEDS ORDERED: D5 1/2NS 1000ml IV ONE (19:44)
--- NOTE | 2016-06-02 00:47 | Operative Note - Dictated ---
DATE OF OPERATION: 06/01/2016 PROCEDURE: Colonoscopy. SURGEON: Rosa Siddiqui M.D. ANESTHESIA: Please see the separate anesthesiologist notes for details. PRE-ENDOSCOPIC DIAGNOSIS: Anemia. POST-ENDOSCOPIC DIAGNOSIS: Normal colonoscopy. DESCRIPTION OF PROCEDURE: The procedure, its risks, indications, alternatives, and possible complications were explained to the patient and informed consent was obtained. The patient was then sedated. The rectal exam was done. The colonoscope was introduced into the rectum and advanced to the cecum. The cecum was identified by the appearance of the ileocecal valve. The colonoscope was then gradually withdrawn and the mucosa was examined carefully. Examination of the colonic mucosa did not reveal any abnormalities. Retroflexed view of the rectum was unremarkable. The colonoscope was removed. The patient was sent to recovery in good condition. COMPLICATIONS: None. RECOMMENDATIONS: 1. We will proceed with capsule endoscopy study. 2. Discharge planning. 3. Outpatient follow up. Rosa Siddiqui M.D. DR: ALICE JOB#: [id number] CC:
[2016-06-02 10:20] LABS: CALCIUM 12.1 mg/dL (8.6-10.2); PTH INTACT 202 pg/mL (15-65)
--- NOTE | 2016-06-02 14:04 | Discharge Summary ---
Discharge Summary Hospital Course Date of Admission May 30, 2016 at 12:54 Date of Discharge Jun 01, 2016 at 19:45 Admitting Diagnosis gi bleed HPI Tony Madera is a 66 year old male who was admitted on May 30, 2016 at 12:54 for Gastrointestinal Bleeding Hospital Course [id number] Discharge Discharge Disposition Patient was discharged to Home (01) Discharge Diagnoses: Marielle Gonzalez NP Jun 02, 2016 14:04
--- NOTE | 2016-06-03 02:47 | Discharge Summary 2 SIG ---
DATE OF ADMISSION: 05/30/2016 DATE OF DISCHARGE: 06/01/2016 CONSULTANTS: 1. Pb Verma M.D. 2. Abner Bishop M.D. 3. Rosa Siddiqui M.D. BRIEF HOSPITAL COURSE: The patient is a 66-year-old male, who presented to ED for GI bleed. He was found to have anemia. He has a hemoglobin of 8.2. On 05/31/2016, he underwent esophagogastroduodenoscopy by Dr. Verma with findings of gastritis. On 06/01/2016 he underwent colonoscopy with normal findings. Dr. Bishop was also consulted. Anemia was secondary to iron deficiency and was given IV iron. Anemia was also secondary to gastrointestinal bleed with melena. The patient had elevated inflammatory markers, possible IBD. Capsule endoscopy was done. Diet was advanced and he was eventually discharged home. FINAL DIAGNOSES: 1. Gastrointestinal bleed. 2. Iron deficiency anemia. 3. Anemia secondary to gastrointestinal bleed. 4. Kidney stones. 5. Obesity. 6. Elevated inflammatory markers, possible inflammatory bowel disease. 7. Hypercalcemia. Francis Saucedo M.D. I have been assigned to dictate discharge summary on this account and I was not involved in the patient's management. Marielle Gonzalez N.P. DR: HEMANTH JOB#: [id number] CC: BEV
--- NOTE | 2016-06-03 09:47 | General Progress Note ---
Assessment/Plan Assessment/Plan Assessment: # Anemia 2/2 iron deficiency - continue iv iron # Anemia 2/2 GI bleed with melena - is s/p egd, gi f/u # Hypercalcemia # Melena # Obesity Recommendations: - Peripheral smear has been reviewed - PTH elevated-->outpatient eval for adenoma - Continue him on iv iron - GI ppx with protonix - [place] for tomorrow - F/U on GI recs - DW Staff Sincerely, Abner Bishop MD Subjective Date patient seen: Jun 01, 2016 Constitutional: Reports: no symptoms HEENT: Reports: no symptoms Cardiovascular: Reports: no symptoms Respiratory: Reports: no symptoms Gastrointestinal/Abdominal: Reports: poor fluid intake Genitourinary: Reports: no symptoms Neurologic/Psychiatric: Reports: no symptoms Endocrine: Reports: no symptoms Hematologic/Lymphatic: Reports: anemia Allergies: Coded Allergies: No Known Allergies (Unverified , 05/30/16) Subjective stable for d/c today, h/h stable Objective Height (Feet): 6 Height (Inches): 0.00 Weight (Pounds): 318 General Appearance: no apparent distress EENT: TMs normal Neck: supple Cardiovascular: no gallop/murmur Respiratory/Chest: normal breath sounds Abdomen: soft Pelvis: normal external exam Extremities: non-tender Edema: no edema noted Leg (L), no edema noted Leg (R) Neurologic: alert Skin: warm/dry Abner Bishop Jun 03, 2016 09:47
--- NOTE | 2016-06-07 09:47 | Consultation ---
DATE OF CONSULTATION: 05/30/2016 HEMATOLOGY/ONCOLOGY CONSULTATION REFERRING PHYSICIAN: Francis Saucedo M.D. REASON FOR CONSULTATION: Evaluation of melena and gastrointestinal bleed. IDENTIFYING DATA: Dear Dr. Sheryl Blanco, The patient is a pleasant 66-year-old male admitted to [facility]. He has past medical history which is significant for kidney stones at this time otherwise unremarkable history at this time who presents to [facility] with melena and black stools that has been ongoing from Sunday. For the past several days he has not been taking any iron therapy, has not had any sick contacts, does not have a history of GI bleed in the past which he is aware of, occult blood was sent for and the patient was admitted to the hospital, fluids were given in the ER as well as CBC which was drawn, the patient was noted to be anemic with hemoglobin 8.3 and Hematology service was consulted for further evaluation and treatment. PAST MEDICAL HISTORY: Kidney stones in the past. PAST SURGICAL HISTORY: None noted. MEDICATIONS: None. ALLERGIES: No known drug allergies. SOCIAL HISTORY: No alcohol, tobacco or illicit drug use. FAMILY HISTORY: Noncontributory. REVIEW OF SYSTEMS: Constitutional: No fever, chills, or night sweats. Skin: No rashes, lumps, or itching. HEENT: No headache, hearing or vision changes. Breasts: No lumps, pain, or discharge. Pulmonary: No cough, sputum, or shortness of breath. Cardiovascular: No chest pain, tightness, or palpitations. Gastrointestinal: No nausea, vomiting, or diarrhea. Genitourinary: No dysuria, frequency, or urgency. Musculoskeletal: No joint swelling, muscle pain, or trauma. Neurological: No dizziness, fainting or seizures. PHYSICAL EXAMINATION: GENERAL: The patient is in no acute distress. VITAL SIGNS: Temperature is 98.6 degrees Fahrenheit, pulse 81, respiratory rate 19, blood pressure 126/60, and pulse oximetry 99% on room air. PULMONARY: Decreased breath sounds. CARDIOVASCULAR: Regular rhythm. No S3 or S4. GASTROINTESTINAL: Abdomen is soft, nontender, and nondistended. EXTREMITIES: Edema 1+. LABORATORY AND DIAGNOSTIC DATA: BUN 15 and creatinine 0.7. WBC 9.6, hemoglobin 8.2, and hematocrit 26, platelet count 217,000. ASSESSMENT: 1. Anemia secondary to gastrointestinal bleed, pending workup, to be seen by GI service. 2. Decreased hemoglobin and hematocrit, evaluate for gastrointestinal bleed and send for anemia workup. 3. Melena history. 4. Kidney stone. 5. . 6. . RECOMMENDATIONS: 1. I have ordered anemia workup including ferritin, iron, ESR, CRP, vitamin B12, folic acid, reticulocyte count. 2. I have ordered for peripheral smear. 3. GI prophylaxis with pantoprazole. 4. DVT prophylaxis with SCDs. 5. GI service evaluation. 6. To be followed up in Hematology clinic as an outpatient given the patient with anemia. 7. The patient transferred to medicine floor, at this time he is stable. 8. We will order for CBC for tomorrow morning. 9. hematemesis. 10. Discussed with staff. Thank you, Dr. Francis Saucedo, for this kind referral. Please do not hesitate to contact me with any further questions. Abner Bishop M.D. DR: Elana JOB#: [id number] CC:
--- NOTE | 2016-06-29 10:25 | Brief Operative Note ---
Immediate Post Operative Note Operative Note Chief Complaint: anemia Pre-op Diagnosis: anemia Procedure: colon Post-op Diagnosis: normal Surgeon: espinoza Anesthesia: MAC Specimen: none Complications: none Condition: stable Estimated Blood Loss: none Drains: none Implant(s) used?: No SHANAE CRUZ Jun 29, 2016 10:25
--- NOTE | 2016-07-10 20:38 | Procedure Note ---
DATE OF PROCEDURE: 06/01/2016 SURGEON: Pb Verma M.D. PROCEDURE: Capsule endoscopy. INDICATION: Gastrointestinal bleeding. REASON FOR PROCEDURE: The procedure, risks, benefits, and possible consequences, including hemorrhage, aspiration, perforation and infection, and alternative treatments, were explained to the patient/legal guardian by Dr. Pb Verma and the patient/legal guardian understood and accepted these risks. DESCRIPTION OF PROCEDURE: The patient swallowed the capsule. Capsule spent about 3 hours and 40 minutes in the small bowel before entering the colon. The capsule spent about 3 hours and 15 minutes in the stomach. There was a little bit of blood in the stomach, most likely from recent endoscopy and biopsy. There was also evidence of gastritis. There was no obvious blood seen throughout the small intestine. There was minimal duodenitis in the proximal small bowel, but no evidence of any ulceration or bleeding. As I mentioned, capsule entered the colon at the end of the study. SUMMARY OF FINDINGS: There is a little bit of blood in the stomach, most probably from recent endoscopy and biopsy. The capsule spent about 3 hours and 40 minutes in the small intestine and there was no obvious source of bleeding seen in this capsule endoscopy. RECOMMENDATIONS: The patient to follow up with Dr. Siddiqui for further workup of his anemia and possibility of gastrointestinal bleeding. I want to thank, Dr. Rosa Siddiqui, for this kind referral. Pb Verma M.D. DR: CONNER JOB#: [id number] CC: Rosa Siddiqui M.D.
== END 2016-06-01 19:45 | disposition home or self-care (01) | DRG 378 ==
LOC: ENRESERVDT → ENRESERVTM → ENRESERV → EMR 10:59 → 4W 12:54 → EDBEDREQ 13:16 → 4W 16:49
PROC: 0DJD8ZZ Inspection of Lower Intestinal Tract, Via Natural or Artificial Opening Endoscopic (ICD-10-PCS; principal; 2016-05-30)
PROC: 0DB68ZX Excision of Stomach, Via Natural or Artificial Opening Endoscopic, Diagnostic (ICD-10-PCS; principal; 2016-05-30)
DX: K92.1 Melena (principal); Z68.42 Body mass index [BMI] 45.0-49.9, adult; E83.52 Hypercalcemia; K29.70 Gastritis, unspecified, without bleeding; D50.0 Iron deficiency anemia secondary to blood loss (chronic); E66.9 Obesity, unspecified; K58.9 Irritable bowel syndrome, unspecified; Z87.442 Personal history of urinary calculi
CPT/HCPCS: 36415; 80048; 80053; 82378; 82607; 82728; 82746; 83540; 83550; 83690; 83970; 85007; 85025; 85044; 85060; 85651; 86140; 94003; 94150